=== PATIENT | male | born 2000 | race Caucasian/White ===

== ENCOUNTER 2020-07-26 18:35 | Emergency (ER) | payer OTHER, BC, SELFPAY ==
[2020-07-26 18:59] VITALS: BP 140/80; PULSE 70; RESP 16; TEMP 36.9; O2SAT 100
--- NOTE | 2020-07-26 20:11 | ED.WOUNDLAC ---
HPI - Wound/Laceration General Chief Complaint: Wound/Laceration Stated Complaint: right finger lac Time Seen by Provider: 07/26/20 19:44 Source: patient Mode of arrival: ambulatory Limitations: no limitations History of Present Illness HPI narrative: This is a 20-year-old male that presents the emergency department after a laceration sustained today. Reports a knife fell and cut his right third finger. He is unsure of his last tetanus vaccine. Denies decreased range of motion or numbness. Related Data Allergies Allergy/AdvReac Type Severity Reaction Status Date / Time No Known Allergies Allergy Unverified 11/05/17 20:11 Review of Systems Review of Systems: Narrative: CONSTITUTIONAL: Denies fever SKIN: Reports laceration NEUROLOGIC: Denies numbness All systems reviewed & are unremarkable except as noted in HPI and below PMFSH Past Medical History Medical History (Updated 07/26/20 @ 20:31 by Hodan Roach PA-C) No active medical problems Social History Social History (Updated 07/26/20 @ 20:13 by Hodan Roach PA-C) Smoking status: Never smoker Exam Narrative: Exam Narrative: GENERAL: Well-appearing, well-nourished, and in no acute distress. HEAD: Normocephalic, atraumatic. EYES: EOMI. EXTREMITIES: Normal range of motion. No edema or obvious deformity. 1.5 cm linear laceration over the right third finger radial side of PIP joint into subcutaneous tissue SKIN: Warm, dry, no rash. NEURO: No focal deficits. Alert and oriented x3. PSYCH: Normal mood and affect Course Vital Signs Vital signs: Vital Signs Temperature 98.5 F 07/26/20 18:59 Pulse Rate 70 07/26/20 18:59 Respiratory Rate 16 07/26/20 18:59 Blood Pressure 140/80 07/26/20 18:59 Pulse Oximetry 100 07/26/20 18:59 Temperature 98.5 F 07/26/20 18:59 Pulse Rate 70 07/26/20 18:59 Respiratory Rate 16 07/26/20 18:59 Blood Pressure 140/80 07/26/20 18:59 Pulse Oximetry 100 07/26/20 18:59 Procedures Laceration Laceration 1: Date: 07/26/20 Time: 20:30 Site: hand Side (If applicable): right Size (cm): 1.5 Description: linear Depth: simple, single layer Local Anesthetic: lidocaine 1% Amount of anesthesia used (mL): 2 Pre-repair: irrigated ====== Skin Level ====== Skin layer closed with: nylon Size (cm): 5-0 Number of sutures: 1 Technique: simple, interrupted ====== Subcutaneous Layer ====== ====== Muscle Layer ====== ====== Tendon Layer ====== MDM - Wound/Laceration MDM Narrative Medical decision making narrative: Patient presents emergency department for laceration to right third finger sustained just prior to arrival. Laceration was irrigated and closed with sutures. Patient was updated on tetanus. He was educated on wound care. He is to follow-up with primary care doctor. He was given warnings to return to the ER Critical Care Time Critical Care Time Critical Care Time: No Discharge Plan Discharge Clinical Impression: Laceration Patient Disposition: Home, Self-Care Condition: Stable Instructions: Care For Your Stitches (ED), Laceration (ED) Additional Instructions: Return to the emergency department if you experience fever, redness or swelling of your wound, abnormal drainage from your wound, or any other symptoms that are concerning to you. Apply antibiotic ointment daily. Do not soak the wound. Clean with mild soap and water daily Follow-up with your primary care doctor for suture removal in 10-14 days. Follow-up/Referrals: PHYSICIAN,[employer] [Primary Care Provider] -
[2020-07-26] MEDS: TETANUS,DIPHTHERIA,AC PERTUSSIS ADULT (0.5 ML) BOOSTRIX IM (20:15)
== END 2020-07-26 20:38 | disposition home or self-care (01) ==
PROVIDERS: Emergency Provider Emergency Medicine
DX: S61.212A Laceration without foreign body of right middle finger without damage to nail, initial encounter (principal); W26.0XXA Contact with knife, initial encounter; Z23 Encounter for immunization
CPT/HCPCS: 12001; 90471; 90715; 99282

== ENCOUNTER 2023-03-06 07:55 | Outpatient (CLI) | payer BC, SELFPAY | END 2023-03-06 07:56 | disposition home or self-care (01) | LOC: ANHAUDASC 08:04 | PROVIDERS: Visit Provider Otolaryngology | DX: H91.93 Unspecified hearing loss, bilateral (principal) | CPT/HCPCS: 92552; 92556; 92567 ==